=== PATIENT | female | born 1980 | race Caucasian/White ===

== ENCOUNTER 2016-12-07 05:27 | Inpatient (IN) | payer MEDICAID ==
[~2016-12-07] VITALS: Ht 160 cm; Wt 115.7 kg
[2016-12-07 06:02] VITALS: BP 128/60; Ht 160 cm; Wt 115.7 kg
[2016-12-07] MEDS ORDERED: PRENATAL COMPLE1 TAB PO (06:02)
[2016-12-07 07:07] LABS: HEMATOCRIT 35.6 % (36.0-48.0); HEMOGLOBIN 11.3 g/dL (12-16); MCH 25.9 pg (26.0-34.0); MCHC 31.7 g/dL (31.0-37.0); MCV 81.7 fL (80.0-100.0); MEAN PLATELET VOLUME 10.2 fL (7.4-10.4); RBC 4.36 10x6/uL (4.00-5.40); RDW 14.4 % (11.5-14.5); WBC 9.6 10x3/uL (4.8-10.8)
[2016-12-07 07:28] LABS: APPEARANCE HAZY (CLEAR); BILIRUBIN NEGATIVE (NEGATIVE); COLOR YELLOW (YELLOW); GLUCOSE NEGATIVE (NEGATIVE); KETONE NEGATIVE (NEGATIVE); LEUKOCYTE ESTERASE NEGATIVE (NEGATIVE); NITRITE NEGATIVE (NEGATIVE); PROTEIN NEGATIVE (NEGATIVE); SPECIFIC GRAVITY 1.015 (1.005-1.020); UROBILINOGEN NORMAL (NORMAL)
[2016-12-07 07:51] LABS: UDS - AMPHET NEGATIVE QUAL (NEGATIVE); UDS - BARB NEGATIVE QUAL (NEGATIVE); UDS - BENZO NEGATIVE QUAL (NEGATIVE); UDS - COCAINE NEGATIVE QUAL (NEGATIVE); UDS - METH NEGATIVE QUAL (NEGATIVE); UDS - OPIATE NEGATIVE QUAL (NEGATIVE); UDS - PCP NEGATIVE QUAL (NEGATIVE); UDS - THC NEGATIVE QUAL (NEGATIVE)
--- NOTE | 2016-12-07 09:12 | NUR ---
FUNDUS AT THE UMBILICUS. FUNDUS FIRM AND MIDLINE. LOCHIA RED, MODERATE.
[2016-12-07 09:32] VITALS: BP 127/82
--- NOTE | 2016-12-07 09:49 | NUR ---
Received to room from recovery by bed, Report from OR nurse. PT is awake and alert, rates pain at 2/10 at this time. Large abd bandage covers bikini incision, bandage is clean and dry, fundus firm upon massage at u/2, light lochia at this time without clots. Towels changed and ice pack applied to incision. jones cath to bedside drain with 150ml annie urine noted. SCD ble placed on pump and verified working. IV to right forearm infusing NS 20units of pitocin per orders. VSS as charted on flowsheet. Pt moved up in bed with assistance and head of bed slightly elevated. side rails up x 2 with call light in reach.
--- NOTE | 2016-12-07 10:26 | NUR ---
Demerol hospice nurse practitioner initated with 50mg bolus given, Tordol 30mg slow iv push also given for pt complaint of pain at incison site at 10/10. Family at bedside. Fundus firm at u/1, scant bleeding noted without clots.
--- NOTE | 2016-12-07 11:00 | NUR ---
fundus firm at u/1, light bleeding without clots. Maria Isabel pad changed. Rates pain at 3/10 at this time. Large cup of ice with sprite per request.
--- NOTE | 2016-12-07 12:04 | NUR ---
Maria Isabel care per rn with warm wet wash cloth. Pt able to demonstrate use of incentive spriometer and coughs well x 2. Towels and chux than changed with pt lifting her bottom up off the bed, turned to her right side. New ice pack applied to incision. Large cup of ice with sprite per request. Rates pain at 3/10 at this time. Side rails up x 2 with call light in her reach, spouse at bedside.
--- NOTE | 2016-12-07 13:22 | NUR ---
THIS RN TO ROOM FOR PT CHECK. PT SITTING UP IN BED VISITING WITH FAMILY, DENIES ANY NEEDS AT THIS TIME, SMILING. [id number], CL IN REACH. WILL CONT TO MONITOR.
--- NOTE | 2016-12-07 15:40 | NUR ---
Maria Isabel care per rn, towels, pink pad and chux all changed at this time, pt able to assist by rolling to right side than to left side, tolerates well. fundus firm at u/1 with scant bleeding at this time. Cortez cath with 150ml dark annie but clear urine noted. Rates pain at 4/10 at this time. Infant in crib at bedside. Side rails up x 2 with phone and call light within her reach.
--- NOTE | 2016-12-07 17:30 | NUR ---
Pt tilted to her left side, visiting with friends/family. Infant in room at this time. Fundus firm a u/1 light lochia no clots noted. Towels changed. 300ml clear urine to jones collection canister. New bag of NS with 20 units of pitocin hung as charted on emar. Pt rates pain at 3-4/10, denies any needs at this time.
--- NOTE | 2016-12-07 18:00 | NUR ---
SUPERVISOR HOT STRIP MILL syringe changed out, zero left in previous syringe. charted on marketing research intern flowsheet also. Pt positioned on to her back with head of bed elevated and to breast. IV and marketing research intern volumes cleared, IV 1037ml and SUPERVISOR HOT STRIP MILL 28ml infused since arrival to unit post delivery. Cortez canister with 100ml clear urine noted. Pt denies any needs for nurse at this time.
--- NOTE | 2016-12-07 19:01 | NUR ---
Report given to 7p-7a.
--- NOTE | 2016-12-07 19:45 | NUR ---
THIS RN TO BEDSIDE FOR SHIFT ASSESSMENT. PT CURRENTLY ATTEMPTING W/ASSISTANCE FROM FOB TO GET INFANT AWAKE AND LATCHED FOR NURSING. PT'S NEEDS AND PAIN ASSESSED. PT REQUEST ANOTHER SPRITE TO DRINK AND REPORTS HER PAIN IS "OK".STATES SHE JUST PUSHED THE SECTION BEAMER BUTTON. WILL ALLOW PT TO NURSE AT THIS TIME AND RETURN FOR ASSESSMENT AT NEXT ROUNDING.
--- NOTE | 2016-12-07 20:35 | NUR ---
THIS RN RETURNS TO BEDSIDE FOR SHIFT ASSESSMENT. PT HAS FINISHED NURSING AND NBN NURSE CECIL THORNTON IN ROOM AT THIS TIME TO TRANSPORT TO NBN. PT CURRENTLY RATES PAIN 4/10. NO REQUEST FOR FURTHER INTERVENTIONS AT THIS TIME. SHIFT ASSESSMENT COMPLETED AT THIS TIME. SEE FLOWSHEET. CONTINUED PM SHIFT POC DISCUSSED. PT VERBALIZES UNDERSTANDING AND IS AGREEABLE. PT PERFORMS I.S. X 3. ABLE TO PULL 2000. COUGHS W.GOOD EFFORT. REPOSITIONS SELF UP IN BED. SCD WRAPS PLACED BACK ON PT'S LEGS BILATERALLY. CONNECTED TO PUMP. PUMP IS ON AND FUNCTIONING. APPROX 250ML URINE EMPTIED FROM UROMETER. PT DENIES FURTHER NEEDS AT PRESENT. SIG OTHER REMAINS AT BEDSIDE. BED LOW. SIDE RAILS UP X 2. CALL LIGHT, DRAWING KILN SUPERVISOR BUTTON AND PHONE AT PT'S SIDE.
[2016-12-07 20:37] VITALS: BP 112/77
--- NOTE | 2016-12-07 21:30 | NUR ---
THIS RN TO BEDSIDE. TORADOL 30MG SIVP GIVEN. IV SITE SALINE LOCKED. ROBISON CATH DISCONTINUED INTACT. APPROX 160ML EMPTIED FROM UROMETER. APPROX 1300ML URINE EMPTIED FROM ROBISON BAG. 1 PKG TERI CRACKERS AND FRESH COLA SERVED. PT STILL DENIES HAVING PASSED GAS. DIET RESTRICTION TEACHING PROVIDED. PT TURNS FROM SIDE TO SIDE. ADDITIONAL PINK PADS AND CHUX REMOVED. SMALL DARK RED LOCHIA NOTED TO PERIPAD. PERICARE DONE. CLEAN PAD PLACED. PT REPORTS PAIN 4/10. PLAN TO ADMIN DEMEROL 50MG PO FOR PAIN.
--- NOTE | 2016-12-07 21:39 | NUR ---
THIS RN TO BEDSIDE TO D/C ROBISON,SALINE LOCK IV AND ADMIN PAIN MEDICATION. PT REPORTS PERCOCET MAKES HER NAUSEATED. PT REPORTS SHE DOES NOT HAVE A PROBLEM WITH DEMEROL MAKING HER NAUSEATED. WILL OBTAIN ORDER FOR DEMEROL INSTEAD.
--- NOTE | 2016-12-07 22:10 | NUR ---
DEMEROL 50MG PO GIVEN. PT DENIES FURTHER NEEDS. SCD WRAPS REMAIN ON BILATERALLY. STILL CONNECTED TO PUMP. PUMP IS ON AND FUNCTIONING.
--- NOTE | 2016-12-07 23:16 | NUR ---
ROUNDS MADE. PT AA&O X 4 IN LOW HENLEY'S. PAIN AND NEEDS ASSESSED. PT RATES PAIN 4/10. DENIES NEEDS. FOB CHANGING INFANTS DIAPER AT BEDSIDE.
--- NOTE | 2016-12-07 23:40 | NUR ---
PT RINGS CALL LIGHT REQUESTING INFANT BE TAKEN TO NBN SO BOTH PT AND SIG OTHER MAY REST. NBN NURSE TO TRANSPORT INFANT.
--- NOTE | 2016-12-08 | NUR ---
ROUNDS MADE. PT RESTING QUIETLY IN LOW HENLEY'S W/EYES CLOSED. RESP EVEN AND UNLABORED. PT LEFT UNDISTURBED AT THIS TIME.
--- NOTE | 2016-12-08 02:00 | NUR ---
INFANT TRANSPORTED VIA CRIB TO PT'S ROOM. ID BANDS VERIFIED PER PROTOCOL.
--- NOTE | 2016-12-08 03:00 | NUR ---
PT RINGS CALL LIGHT REQUESTING TO GET UP TO BR. THIS RN TO BEDSIDE. PT HAS ALREADY REPOSITIONED SELF TO SITTING ON SIDE OF BED. PT REPORTS SOME DIZZINESS AT FIRST, BUT DENIES ANY AT THIS TIME. PT TO STANDING AT SIDE OF BED W/OUT ASSISTANCE AND AMBULATES TO BR. ABLE VOID 500ML URINE IN NUNS CAP. PT PERFORMS SELF PERICARE. ASSISTED W/PUTTING PANTIES AND PADS ON. PT AMBULATES BACK TO BED. AWAKE IN CRIB. WET/DM DIAPER CHANGED. INFANT PLACED IN MOTHER'S ARMS TO BEGIN . SIG OTHER IN ROOM FOR ASSISTANCE.
--- NOTE | 2016-12-08 05:07 | NUR ---
PAIN 5/10, INCISIONAL BURNING AND STINGING, WITH "SOME CRAMPING AND ACHING. I THINK I'M STARTING TO GET GAS PAINS." MOTRIN GIVEN PER REQUEST. ENCOURAGED PT TO AMBULATE TO RELIEVE GAS PAIN. PT STATES SHE PLANS TO WALK THIS MORNING AFTER BREAKFAST. IN CRIB AT BEDSIDE CRYING. HANDED TO PT. DENIES ADDITIONAL NEEDS AT THIS TIME. S/O SLEEPING IN CHAIR AT BEDSIDE. BED IN LOW POSITION WITH UPPER SIDE RAILS RAISED X2. CL AND PHONE WITHIN REACH. WILL CONT TO MONITOR AND ASSIST PRN.
--- NOTE | 2016-12-08 06:20 | NUR ---
ROUNDS MADE. PT LYING AWAKE IN BED. PAIN AND NEEDS ASSESSED. PT C/O PAIN 09/28. DEMEROL 50MG PO GIVEN. PT OOB AMBULATORY TO BR. VOIDS 400ML URINE. RETURNS TO BED. DENIES FURTHER NEEDS AT THIS TIME. IN OPEN CRIB AT BEDSIDE. DIDN'T TAKE BUT 15ML AT LAST FEEDING, FUSSY AT THIS TIME. PT DECIDES TO ATTEMPT TO NURSE INFANT AGAIN AT THIS TIME.
[2016-12-08 06:50] LABS: BASOPHILS 0 % (0-2); EOSINOPHILS 0.3 % (0-7); HEMATOCRIT 32.2 % (36.0-48.0); HEMOGLOBIN 10.3 g/dL (12-16); IMMATURE GRANULOCYTES 0.3 % (0-5); LYMPHOCYTES 10.5 % (15-50); MCH 25.9 pg (26.0-34.0); MCV 81.1 fL (80.0-100.0); MEAN PLATELET VOLUME 9.4 fL (7.4-10.4); NEUTROPHILS 81.9 % (40-80); RBC 3.97 10x6/uL (4.00-5.40); RDW 14.5 % (11.5-14.5); WBC 11.7 10x3/uL (4.8-10.8)
[2016-12-08 06:57] LABS: PLATELET COUNT 174 10x3/uL (130-400)
[2016-12-08 07:25] LABS: RAPID PLASMA REAGIN Non Reactive (Non Reactive)
--- NOTE | 2016-12-08 08:15 | NUR ---
Pt sitting up eating regular diet, in crib at bedside. Pt will call for nurse when she has finished eating.
--- NOTE | 2016-12-08 08:30 | NUR ---
Catherine Geneva [birth year] S: Patient states she delivered by , 2nd baby, is doing both bottle and feeding. States since her milk really isn't in yet; she doesn't think baby isn't getting anything. O: Patient in bed trying to calm fussing . Patient asked if I could hold baby so she can get up and go to the bathroom. Observed infant clothing and blanket, has thrown up all over both, offered to go to nursery and get clean shirt and blankets for baby. Informed mom takes time and patience in the beginning. Both mother and baby are learning about , together this will take time. Explained breastmilk composition, in the beginning your body makes colostrum in small amounts, because that's all needs at this time. Your colostrum will increase by volume with every feeding to meet infant needs. The more is placed to the breast, the more your body will make, because there is a demand for it. Supply and demand, what takes out, your body will make more of. Encouraged patient to latch for every feeding, ask for help if needed. Patient states baby will latch for a few minutes then come off, that's how she knows he isn't getting anything. If a baby latches at the breast, but comes off, it's possible he wasn't latched correctly and baby is trying to figure it out also. I would just place baby back to the breast for feeding. Explained feeding cues and provided handout, if infant shows signs of feeding cues, latch baby to the breast, don't want until baby is fussy. Baby will have a harder time latching if baby is fussy because baby will want the milk to come out faster, like when given a bottle. At the breast, baby does have to work to remove the milk, this takes some time. That's why we feed baby on demand when showing feeding cues, baby is then calm and would be willing to work to remove milk from the breast. Turn infant tummy to tummy, nose opposite to nipple, gently support infant head, and allow him to self-latch. Some babies will latch immediately, some take a few moments longer, there is no required time frame on how fast baby should latch. Just be patient with baby, he can latch. Patient states she breastfed her other son for about a month, but she didn't have a pump, this time she does and think that will make a big difference. Having a breast pump can be beneficial, I recommend latching infant as much as possible for the first two weeks, when working on building a supply. When you pump, pumping just says this is how much I make when I pump, the amount you can get it will vary, and doesn't reflect the amount baby is actually getting out when placed to the breast. will have periods of growth spurs, he will want to eat more often, this is normal. If you decide to pump more than placing to the breast, you should pump every 2 hours during the day and 3-4 hours at night, at least 8- 12 times in 24 hours. You will need to mimic infant feedings as if he was put to the breast to help build a supply. Provided and explained handouts on benefits of skin to skin, positions, starting a feeding, waking a sleeping baby, and what to expect the first week. Asked if any questions or concerns, patient declined, returned to room and brought clean blankets and shirt for infant, will follow up. A: Patient doesn't think her milk is in yet, has been giving formula also. P: Offer infant the breast for every feeding. Angus West, CLC
--- NOTE | 2016-12-08 09:00 | NUR ---
AM assessment completed as chartedon flow sheet. VSS, fundus firm at u/1, bikini incision remains covered with large white dressing, this is clean and dry. Pt states that she has gotten up to bathroom, 400ml clear urine to collection hat in bathroom, explained that she no longer had to collect output. Questions answered about showering. Call light in reach with siderails up x 2, friends/family at bedside holding .
--- NOTE | 2016-12-08 09:52 | NUR ---
pt calls out requesting pain med for pain at incision site that she rates at 6/10. NO other needs voiced at this time.
--- NOTE | 2016-12-08 11:28 | NUR ---
Motrin given for c/o back pain that she is rating at 7/10, states "it is shooting thru my back" warm blanket also provided for her back. Saline lock removed intact from right forearm. Infant in crib at bedside, family members also present. Pt is encouraged to walk about room and even out in kapadia or to nursery. Call light in reach.
--- NOTE | 2016-12-08 13:30 | NUR ---
pt amb in halls to nursery, back to room with in crib.
--- NOTE | 2016-12-08 15:00 | NUR ---
Rates pain at 4/10, warm blanket provided and placed on back for comfort. denies any other needs at this time.
[2016-12-08 20:00] VITALS: BP 130/59
--- NOTE | 2016-12-08 20:00 | NUR ---
REC'D PT AA&O X 4 LYING IN BED W/INFANT UP IN ARMS. PAIN AND NEEDS ASSESSED. PT REPORTS LOWER BACKPAIN 10/29. DEMEROL 100MG PO GIVEN PER PT REQUEST. SHIFT ASSESSMENT COMPLETED. SEE FLOWSHEET. INSTRUCTIONS GIVEN THAT ABD DRESSING WILL NEED TO BE REMOVED TONIGHT. OPTIONS PROVIDED. PT VERBALIZES UNDERSTANDING AND IS AGREEABLE. FRESH ICE WATER SERVED.
--- NOTE | 2016-12-08 21:00 | NUR ---
ROUNDS MADE FOR PAIN REASSESSMENT. PT REPORTS PAIN 2/10. DENIES NEEDS AT THIS TIME.
--- NOTE | 2016-12-08 22:45 | NUR ---
THIS RN TO BEDSIDE TO ASSIST PT WITH REMOVING HER ABD DRESSING. PT CURRENTLY FEEDING INFANT. WILL RETURN ONCE SHE HAS FINISHED. NO NEEDS VOICED AT THIS TIME.
--- NOTE | 2016-12-08 23:30 | NUR ---
THIS RN TO BEDSIDE. PT HAS FINISHED FEEDING. ABD DRESSING REMOVED USING WARM WATER W/OUT DIFFICULTY. PT TOLERATED WELL. ABD INCISION C/D WITH DERMABOND AND STERISTRIPS INTACT. PERIPAD PLACED OVER SITE W/INSTRUCTIONS GIVEN. PT OOB. BED LINENS CHANGED. PT REPORTS PAIN 10/29. REQUEST TO RECEIVE BOTH MOTRIN AND DEMEROL AT THIS TIME.
--- NOTE | 2016-12-09 01:30 | NUR ---
ROUNDS MADE. PT SLEEPING TO RT SIDE. SNORING AUDIBLE. RESP EVEN. PT AWAKENED TO INFORM HER THAT IS TO BE TRANSPORTED BACK TO N FOR ASSESSMENTS. PT VERBALIZES UNDERSTANDING AND AGREEABLE. NO NEEDS VOICED AT THIS TIME.
--- NOTE | 2016-12-09 03:30 | NUR ---
ROUNDS MADE. PT LYING AWAKE IN BED. AKNOWLEDGES NURSES PRESENTS. DENIES NEEDS OR PAIN AT PRESENT.
--- NOTE | 2016-12-09 05:45 | NUR ---
PT AMBULATING IN JC RETURNING FROM NURSERY PUSHING IN CRIB. PAIN AND NEEDS ASSESSED. PT REPORTS HAVING INCISIONAL BURNING. REQUEST TO RECEIVE BOTH DEMEROL AND MOTRIN.
--- NOTE | 2016-12-09 06:00 | NUR ---
MOTRING 600MG AND DEMEROL 100MG PO GIVEN PER PT REQUEST. SEE EMAR. PT HAS A COLA AT BEDSIDE. DENIES FURTHER NEEDS AT THIS TIME. BED LOW, CALL LIGHT AT PT SIDE. SIG OTHER SLEEPING ON SOFA AT BEDSIDE.
[2016-12-09 07:44] VITALS: BP 119/63
--- NOTE | 2016-12-09 07:44 | NUR ---
RECEIVED PT SITTING UP IN BED. CONSUMING BREAKFAST. VSS. HRRR WITHOUT AUDIBLE MURMUR. BBS CLEAR. BS X 4. ABDOMEN SOFT/NON-DISTENDED. PT STATES PASSING GAS. NO BM YET. ABDOMINAL INCISION WITH STERISTRIPS WITHOUT REDNESS, SWELLING OR DRAINAGE NOTED. FUNDUS FIRM AT U/U. RUBRA LOCHIA SCANT AMT. PT DENIES HEAVY BLEEDING OR PASSING CLOTS. NEG HOMANS' SIGN. PPP. MILD NON-PITTING EDEMA NOTED TO BLE. PT DENIES NEED FOR PAIN MEDICATION FOR PAIN OF "4" ON 0-10 PAIN SCALE. REQUESTS AND RECEIVES COLA. SR UP X 2. CALL LIGHT IN REACH.
--- NOTE | 2016-12-09 09:19 | NUR ---
DR BHAKTA TO ROOM. VISITS WITH PT.
[2016-12-09] MEDS ORDERED: MEPERIDINE HCL50 MG PO (10:00)
[2016-12-09] MEDS ORDERED: IBUPROFEN600 MG PO (10:00)
--- NOTE | 2016-12-09 10:15 | NUR ---
Catherine Riosluz maria [birth year] LE@ 8:30 S: Patient states she knows her milk hasn't come in yet, so she has been just given baby formula. States she will try when she gets home. O: Patient sitting up in bed, states she is trying to call her because she will be leaving soon, awake in crib at bedside. Reminded patient your body is able to produce now what's called colostrum for baby. This is milk for your baby. Your body will increase in the amount of colostrum it will make for daily, as long as baby is placed to the breast for every feeding. Stimulation is necessary with helping your body to produce for , supply and demand, what is taking out; your body will make more of. Encouraged patient to try latching at least one time before leaving the hospital, this way we can verify latch and answer any questions about you may have. Patient didn't reply. We respect how you would like to feed baby, she is doing a great job, being in the hospital, it gives us a better opportunity to help you one on one with feedings, this will make easier when you get home. If you need any help with nursing at home she may contact me on my work cell. Provided handout on what to expect the first week, asked if any questions or concerns, client declined. Will follow up with patient. A: Patient prefers to breastfeed at home verses in the hospital. P: Continue to support exclusively . Angus West, CLC
--- NOTE | 2016-12-09 10:15 | NUR ---
DISCHARGE INSTRUCTIONS GIVEN TO PT. PT VERBALIZES UNDERSTANDING OF ALL INSTRUCTIONS. COPIES GIVEN TO PT. PT GIVEN RX FOR DEMEROL AND IBUPROFEN. PT AWAITING RIDE.
--- NOTE | 2016-12-09 10:40 | NUR ---
PT READY FOR DISCHARGE. DISCHARGED WITH VIA WHEELCHAIR PER AUXILIARY STAFF TO PRIVATE VEHICLE.
== END 2016-12-09 10:40 | disposition home or self-care (01) | DRG 766 ==
LOC: D.LD 05:27
PROVIDERS: ADMIT Obstetrics & Gynecology
PROC: 10D00Z1 Extraction of Products of Conception, Low, Open Approach (ICD-10-PCS; principal; 2016-12-07 07:30)
PROC: 0UB70ZZ Excision of Bilateral Fallopian Tubes, Open Approach (ICD-10-PCS; 2016-12-07 07:30)
DX: O34.211 Maternal care for low transverse scar from previous cesarean delivery (principal); Z30.2 Encounter for sterilization; Z3A.39 39 weeks gestation of pregnancy; Z37.0 Single live birth